=== PATIENT | male | born 1995 | race Caucasian/White ===

== ENCOUNTER 2017-06-06 17:56 | Emergency (ER) | payer OTHER | END 2017-06-06 18:27 | disposition left against medical advice (07) | LOC: EMS 17:58 | DX: F41.9 Anxiety disorder, unspecified (principal); Z53.21 Procedure and treatment not carried out due to patient leaving prior to being seen by health care provider ==

== ENCOUNTER 2017-06-22 21:08 | Emergency (ER) | payer OTHER ==
[~2017-06-22] VITALS: Ht 175.3 cm; Wt 79.5 kg
[2017-06-22 21:12] VITALS: BP 135/88
== END 2017-06-22 21:36 | disposition left against medical advice (07) ==
LOC: EMS 21:10
DX: F41.9 Anxiety disorder, unspecified (principal); Z53.21 Procedure and treatment not carried out due to patient leaving prior to being seen by health care provider